=== PATIENT | female | born 2000 | race American Indian/Alaskan Native ===

== ENCOUNTER 2020-08-07 00:23 | Emergency (ER) | payer SELFPAY ==
[2020-08-07 01:21] VITALS: BP 103/61
[2020-08-07] MEDS ORDERED: IBUPROFEN 600 MG TAB PO ONE (02:17)
[2020-08-07] MEDS ORDERED: ACETAMINOPHEN 325 MG TAB PO ONE (02:17)
[2020-08-07] MEDS ORDERED: ONDANSETRON 4 MG ODT TAB PO ONE (02:17)
--- NOTE | 2020-08-07 03:15 | Emergency Department Report ---
ED Fall HPI - General Chief Complaint: Head Injury Stated Complaint: HEAD INJURY Source: patient Mode of arrival: Ambulatory - History of Present Illness Initial Comments: Patient is a nulliparous 20-year-old -[place] female with no past medical history presents to the ED with complaint of acute onset persistent severe headache, painful occipital scalp and low back pain for the last 3 weeks after slipped down the stairs and fell down landing on her lower back and hitting her occipital scalp. Patient states that the headache has been persistent, constant despite taking xagh-fac-bsznzul pain medications. Patient also complains of bilateral ear pain for the last 1 week. Patient denies nausea, vomiting, fever, chills, cough, sore throat, nosebleed, change in vision, shortness of breath, chest pain, loss of consciousness, seizures, syncope, numbness and tingling or weakness of upper and lower extremities bilaterally or abdominal pain. MD Complaint: fall (Severe headache, s/p fall down the stairs), other (Low back pain; neck pain) -: Sudden, week(s) (3) Fall From: down stairs (#) (3) When Fall Occurred: other (3 weeks ago) Fall Witnessed: yes, by family Place Fall Occurred: home Loss of Consciousness: none Prolonged Down Time?: no Symptoms Prior to Fall: none Location: head (Posterior scalp pain with severe headache), back (Low back pain), other Severity: severe Severity scale (0 -10): 8 Quality: sharp, aching Context: tripped/slipped (Slipped and fell down the stairs) Associated Symptoms: headache, neck pain, other (Low back pain; bilateral ear pain). denies: denies, numbness, weakness, chest paint, shortness of breath, abdominal pain, hematuria, unable to walk, lightheaded, vertigo, confusion - Related Data Previous Rx's Medication Instructions Recorded Last Taken Type Amoxicillin [Trimox CAP] 500 mg PO Q8H #30 capsule 08/07/20 Unknown Rx Baclofen [Lioresal] 10 mg PO Q12H PRN #20 tab 08/07/20 Unknown Rx Ibuprofen [Motrin] 600 mg PO Q8H PRN #30 tablet 08/07/20 Unknown Rx Ofloxacin 0.3% [Floxin 0.3% Otic] 1 drop OT DAILY #5 ml 08/07/20 Unknown Rx Allergies Allergy/AdvReac Type Severity Reaction Status Date / Time No Known Allergies Allergy Unverified 08/07/20 01:33 ED Review of Systems ROS: Stated complaint: HEAD INJURY Other details as noted in HPI Constitutional: denies: chills, fever Eyes: denies: eye pain, eye discharge, vision change ENT: ear pain (Bilateral ear pain), other (Localized posterior scalp pain). denies: throat pain Respiratory: denies: cough, shortness of breath, wheezing Cardiovascular: denies: chest pain, palpitations Endocrine: no symptoms reported Gastrointestinal: denies: abdominal pain, nausea, vomiting, diarrhea Genitourinary: denies: urgency, dysuria, discharge Musculoskeletal: back pain (Low back pain). denies: joint swelling, arthralgia Skin: denies: rash, lesions Neurological: headache. denies: weakness, paresthesias Psychiatric: denies: anxiety, depression Hematological/Lymphatic: denies: easy bleeding, easy bruising ED Past Medical Hx - Past Medical History Previous Medical History?: No - Surgical History Past Surgical History?: No - Social History Smoking Status: Never Smoker Substance Use Type: None - Medications Home Medications: Home Medications Medication Instructions Recorded Confirmed Last Taken Type Amoxicillin [Trimox CAP] 500 mg PO Q8H #30 capsule 08/07/20 Unknown Rx Baclofen [Lioresal] 10 mg PO Q12H PRN #20 tab 08/07/20 Unknown Rx Ibuprofen [Motrin] 600 mg PO Q8H PRN #30 tablet 08/07/20 Unknown Rx Ofloxacin 0.3% [Floxin 0.3% Otic] 1 drop OT DAILY #5 ml 08/07/20 Unknown Rx ED Physical Exam - General Limitations: No Limitations General appearance: alert, in no apparent distress - Head Head exam: Present: other (Palpable localized posterior scalp tenderness) - Eye Eye exam: Present: normal appearance, PERRL, EOMI Pupils: Present: normal accommodation - ENT ENT exam: Present: normal exam, normal orophraynx, mucous membranes moist, other (Bilateral bulging erythematous tympanic membrane with mild effusion) - Neck Neck exam: Present: normal inspection, tenderness (Palpable cervical paraspinal musculoskeletal tenderness), full ROM. Absent: lymphadenopathy - Respiratory Respiratory exam: Present: normal lung sounds bilaterally. Absent: respiratory distress, wheezes, rales, rhonchi, chest wall tenderness, accessory muscle use, decreased breath sounds, prolonged expiratory - Cardiovascular Cardiovascular Exam: Present: regular rate, normal rhythm, normal heart sounds. Absent: systolic murmur, diastolic murmur, rubs, gallop - GI/Abdominal GI/Abdominal exam: Present: soft, normal bowel sounds. Absent: tenderness, guarding, rebound, hyperactive bowel sounds, hypoactive bowel sounds, mass - Extremities Exam Extremities exam: Present: normal inspection, full ROM, normal capillary refill - Back Exam Back exam: Present: normal inspection, full ROM, tenderness (Palpable lumbosacral paraspinal musculoskeletal and vertebral tenderness), muscle spasm, paraspinal tenderness, vertebral tenderness. Absent: CVA tenderness (R), CVA tenderness (L) - Neurological Exam Neurological exam: Present: alert, oriented X3, CN II-XII intact, normal gait, reflexes normal - Psychiatric Psychiatric exam: Present: normal affect, normal mood - Skin Skin exam: Present: warm, dry, intact, normal color. Absent: rash ED Course Vital Signs 08/07/20 01:20 Temperature 98.4 F Pulse Rate 67 Respiratory 18 Rate Blood Pressure 103/61 O2 Sat by Pulse 98 Oximetry ED Medical Decision Making - Radiology Data Radiology results: report reviewed, image reviewed [facility] [address] [place] [address] Cat Scan Report Signed Patient: DELMY MCNEIL MR#: [id number] 5 : 2000 Acct:[id number] Age/Sex: 20 / F ADM Date: 08/07/20 Loc: ED Attending Dr: Ordering Physician: ANNEMARIE PHOENIX Date of Service: 08/07/20 Procedure(s): CT cervical spine wo con Accession Number(s): [id number] cc: ANNEMARIE PHOENIX CT cervical spine without contrast INDICATION: Post-Fall down steps x 3 weeks ago, still having a neck pain. TECHNIQUE: Axial imaging performed through the cervical spine without the use of contrast. Sagittal and coronal reconstructed images were also reviewed. All CT scans at this location are performed using CT dose reduction for ALARA by means of automated exposure control. COMPARISON: None FINDINGS: Alignment: Spinal alignment is normal. Bones: There is no acute osseous abnormality. Mild multilevel discogenic DJD is present. Soft tissues: No acute or significant incidental soft tissue abnormality. IMPRESSION: No acute abnormality. Signer Name: Teto Soto MD Signed: 08/07/2020 3:22 AM Workstation Name: [id number] Transcribed By: KATHRYN Dictated By: Teto Soto MD Electronically Authenticated By: Teto Soto MD Signed Date/Time: 08/07/20321 DD/ 0 TD/TT: [place] [address] Cat Scan Report Signed Patient: DELMY MCNEIL MR#: [id number] 5 : 2000 Acct:[id number] Age/Sex: 20 / F ADM Date: 08/07/20 Loc: ED Attending Dr: Ordering Physician: ANNEMARIE PHOENIX Date of Service: 08/07/20 Procedure(s): CT head/brain wo con Accession Number(s): [id number] cc: ANNEMARIE PHOENIX CT head without contrast INDICATION : Headache following fall TECHNIQUE: Axial imaging performed from the skull apex through the skull base without the use of contrast. All CT examinations performed at this facility utilize dose modulation, iterative reconstruction or weight-based dosing, when appropriate, to reduce radiation dose to as low as reasonably achievable. COMPARISON: None FINDINGS: No acute intracranial hemorrhage or parenchymal abnormality. Ventricles are normal in size and appear symmetric. Soft tissues including the orbits appear normal. No acute osseous abnormality. Sinuses and mastoid air cells are clear. IMPRESSION: No acute abnormality. Signer Name: Teto Soto MD Signed: 08/07/2020 3:21 AM Workstation Name: [id number] Transcribed By: KATHRYN Dictated By: Teto Soto MD Electronically Authenticated By: Teto Soto MD Signed Date/Time: 08/07/20320 DD/ 8 TD/TT: [facility] [address] [place] [address] XRay Report Signed Patient: DELMY MCNEIL MR#: [id number] 5 : 2000 Acct:[id number] Age/Sex: 20 / F ADM Date: 08/07/20 Loc: ED Attending Dr: Ordering Physician: ANNEMARIE PHOENIX Date of Service: 08/07/20 Procedure(s): XR spine lumbosacral 2-3V Accession Number(s): [id number] cc: ANNEMARIE PHOENIX Fluoro Time In Minutes: Lumbar spine 2 views INDICATION: Low back pain following fall IMPRESSION: No fracture or subluxation is identified. Signer Name: Teto Soto MD Signed: 08/07/2020 4:45 AM Workstation Name: [id number] Transcribed By: KATHRYN Dictated By: Teto Soto MD Electronically Authenticated By: Teto Soto MD Signed Date/Time: 08/07/20444 DD/ 4 TD/TT: Print Cancel - Medical Decision Making This is a nulliparous 20-year-old -[place] female with no past medical history presents to the ED with complaint of acute onset persistent severe headache, painful occipital scalp and low back pain for the last 3 weeks after slipped down the stairs and fell down landing on her lower back and hitting her occipital scalp. Patient states that the headache has been persistent, constant despite taking klxf-tgp-yxmcuec pain medications. Patient also complains of bilateral ear pain for the last 1 week. In the ED, patient is alert and oriented x3 and is not in any distress. Patient was treated for pain in the ED and the head CT scan without contrast showed no acute intracranial abnormalities or hemorrhage. The C-spine CT scan without contrast also showed no acute c ervical disc or spine fractures and subluxations. The L-spine x-ray also showed no acute fractures and subluxations. On reevaluation, patient's pain is well controlled medications. Patient was therefore discharged home on medications and advised to follow-up with her primary care physician in 7 to 10 days for reevaluation or return to the ED immediately if symptoms get worse. - Differential Diagnosis Cervical sprain; muscle spasm; scalp contusion; head injury; back injury; Critical care attestation.: If time is entered above; I have spent that time in minutes in the direct care of this critically ill patient, excluding procedure time. ED Disposition Clinical Impression: Contusion of scalp, face, and neck, excluding eyes, Spasm of muscle of lower back, Strain of muscle, fascia and tendon of lower back, initial encounter, Acute otitis media with effusion of both ears Disposition: DC-01 TO HOME OR SELFCARE Is pt being admited?: No Does the pt Need Aspirin: No Condition: Stable Instructions: Muscle Cramps and Spasms, [id number]-fs-[id number], Otitis Media, Adult, Ujxe-af-Ooqu, Facial or Scalp Contusion, Scwf-xm-Tkyv, Muscle Strain, Gvtt-dh-Apnt, Low Back Sprain or Strain Rehab-SportsMed Additional Instructions: The head CT scan without contrast showed no acute intracranial abnormalities or hemorrhage. The C-spine CT scan without contrast showed no acute cervical disc fractures or subluxations. The L-spine x-ray showed no acute fractures or subluxations of the lumbar spine. Therefore take medication with food, drink plenty of fluids and follow-up with your primary care physician in 7 to 10 days for reevaluation. Return to the ED immediately if symptoms get worse. Prescriptions: Ofloxacin 0.3% [Floxin 0.3% Otic] 1 drop OT DAILY #5 ml Baclofen [Lioresal] 10 mg PO Q12H PRN #20 tab PRN Reason: Muscle Spasm Ibuprofen [Motrin] 600 mg PO Q8H PRN #30 tablet PRN Reason: Pain Amoxicillin [Trimox CAP] 500 mg PO Q8H #30 capsule Referrals: [facility] [Provider Group] - 3-5 Days Time of Disposition: 03:19 Print Language: CYMRAES
--- NOTE | 2020-08-07 03:25 | Cat Scan Report ---
CT head without contrast INDICATION : Headache following fall TECHNIQUE: Axial imaging performed from the skull apex through the skull base without the use of con trast. All CT examinations performed at this facility utilize dose modulation, iterative reconstruct ion or weight-based dosing, when appropriate, to reduce radiation dose to as low as reasonably achiev able. COMPARISON: None FINDINGS: No acute intracranial hemorrhage or parenchymal abnormality. Ventricles are normal in si ze and appear symmetric. Soft tissues including the orbits appear normal. No acute osseous abnorm ality. Sinuses and mastoid air cells are clear. IMPRESSION: No acute abnormality. Signer Name: Teto Soto MD Signed: 08/07/2020 3:21 AM Workstation Name: [id number]
--- NOTE | 2020-08-07 03:27 | Cat Scan Report ---
CT cervical spine without contrast INDICATION: Post-Fall down steps x 3 weeks ago, still having a neck pain. TECHNIQUE: Axial imaging performed through the cervical spine without the use of contrast. Sagittal and coronal reconstructed images were also reviewed. All CT scans at this location are performed us ing CT dose reduction for ALARA by means of automated exposure control. COMPARISON: None FINDINGS: Alignment: Spinal alignment is normal. Bones: There is no acute osseous abnormality. Mild multilevel discogenic DJD is present. Soft tissues: No acute or significant incidental soft tissue abnormality. IMPRESSION: No acute abnormality. Signer Name: Teto Soto MD Signed: 08/07/2020 3:22 AM Workstation Name: [id number]
--- NOTE | 2020-08-07 04:50 | XRay Report ---
Lumbar spine 2 views INDICATION: Low back pain following fall IMPRESSION: No fracture or subluxation is identified. Signer Name: Teto Soto MD Signed: 08/07/2020 4:45 AM Workstation Name: [id number]
== END 2020-08-07 05:30 | disposition home or self-care (01) ==
LOC: ED 00:23
DX: S39.012A Strain of muscle, fascia and tendon of lower back, initial encounter (principal); S00.83XA Contusion of other part of head, initial encounter; H66.93 Otitis media, unspecified, bilateral; Z79.899 Other long term (current) drug therapy; W10.8XXA Fall (on) (from) other stairs and steps, initial encounter; Y93.89 Activity, other specified; Y92.89 Other specified places as the place of occurrence of the external cause; Y99.8 Other external cause status
CPT/HCPCS: 70450; 72100; 72125; 99284; Q0162